=== PATIENT | male | born 1985 | race Caucasian/White ===

== ENCOUNTER 2016-07-10 03:47 | Emergency (ER) | payer BC, OTHER ==
[~2016-07-10] VITALS: Ht 157.5 cm; Wt 75.2 kg
[2016-07-10 03:49] VITALS: Ht 157.5 cm; Wt 75.2 kg
--- NOTE | 2016-07-10 03:59 | ERPDOC ---
Departure Disposition Decision Date: Jul 10, 2016 Disposition Decision Time: 04:53 Disposition: 01 DISCHARGED HOME, SELF-CARE Impression Impression Impression: Primary Impression: Alcohol intoxication Complication of substance-induced condition: uncomplicated Qualified Codes: F10.120 - Alcohol abuse with intoxication, uncomplicated Severity: Mild Condition: Improved Seen By: Physician only Referrals: CLAYTON VALDERRAMA MD (Family) Patient Instructions: Abuse of Alcohol (ED) Problems/Meds/Labs Reviewed?: Yes Medications reviewed and manag: Yes Follow up care ordered?: Yes Mental Status: Alert HPI - Psychosocial General Stated Complaint: CLEARED Time Seen by MD: 03:50 Source: patient, police Exam Limitations: intoxication HPI - Psychosocial Initial Comments Pt brought by police for medical clearance to go to senior care. Pt arrested for DUI and blew >400 on PBT. Needs medical clearance to go to senior care tonight. Pt has not complaints, admits he is "hammered." Denies any known drug use, but states he "could have had an edible or smoked some weed, but I hope not." Last etoh intake was 4+ hours ago. Allergies: Coded Allergies: No Known Drug Allergies (Unverified Allergy, Unknown, 07/10/16) Past History Past Medical History Pt denies signifigant PMH Surgical History Denies Surgeries Vaccines Hx Influenza Vaccination: No Hx Pneumococcal Vaccination: No Hx Tetanus, Diptheria, Pertuss: Yes (2-3 YEARS AGO) Social History Smoking Status: Never smoker Does patient use chewing tobac: No Second Hand Exposure: No Substance Use Type: does not use Alcohol Intake: a few times a month Record Review Pertinent history updated: Yes Review of Systems Constitutional Constitutional: DENIES: appetite decrease, appetite increase, chills, dizziness , fever, weakness ENMT Ears: DENIES: pain Hearing: DENIES: hearing loss, tinnitus Balance: DENIES: vertigo Mouth/Throat: DENIES: change in swallowing, change in voice, hoarsness, painful swallowing, sore throat Cardiovascular Cardiac: DENIES: chest pain, dyspnea on exertion Rhythm/Rate: DENIES: irregular beat, palpitations, tachycardia Vascular: DENIES: pedal edema Pulmonary Respiratory: DENIES: cough, dyspnea, pleuritic chest pain GI Upper Abdomen: DENIES: dysphagia, heartburn/indigestion, nausea, pain, vomiting Lower Abdomen: DENIES: blood in stool, constipation, diarrhea, pain General: DENIES: burning, dysuria, frequency, pain, urgency Musculoskeletal General: DENIES: cramps, joint pain, joint swelling, pain, weakness Integumentary Skin: DENIES: rash, sores Neurological General: DENIES: headache, numbness, tingling, vertigo, weakness Psychiatric Psychiatric: DENIES: anxiety, depression, nervousness Physical Exam General General Nourishment: well nourished, well developed, appears stated age, no acute distress General Body Habitus: well groomed Vitals and Pain First Documented Vital Signs Date Time Temp Pulse Resp B/P Pulse Ox O2 Delivery O2 Flow Rate FiO2 07/10/16 03:49 98.4 66 16 149/78 98 Room Air Weight: Kilograms: Height (feet): Height (inches): Triage Pain Scale: RN VS reviewed by Provider: Yes Comments Pt is alert, oriented and cooperative. Normal Exams: Head: Normocephalic w/o trauma Eyes: Pupils are PERRLA w/ EOMI, No scleral icterus, irritation, or foreign bodies noted ENMT: No facial trauma, nasal exudates, pharyngeal erythema, or exudates are noted Neck: Full range of motion, without adenopathy, JVD, bruits or thyromegaly Chest/Resp: Clear all co[place], with good airflow, and symmetry bilaterally CV: Regular rate and rhythm, without murmur or gallop, Pulses 2+ all extremities, capillary refill, <2 seconds all ext., no pedal edema noted Abdomen: Bowel sounds positive, soft, non-tender, non-distended, no hepatosplenomegaly, masses or bruits noted Lymphatic: No lymphadenopathy, or lymphedema noted Musculoskeletal: No tenderness, or deformity noted, good range of motion, all extremities Integumentary: No rashes, hives, or bruising noted, hair and nails, without abnormality Neurologic: Patient is alert, and oriented, cranial nerves, motor/sensory/ cerebellar, exams w/o gross deficits, to observation Psychiatric: Patient exhibits, appropriate attention, emotion and affect Progress Results/Orders Orders Procedure Category Date Status Time Ethanol LAB 07/10/16 Complete Drug Screen LAB 07/10/16 In Process Urine-Test At [facility] 03:50 Cbc W/Auto LAB 07/10/16 Complete Diff-Reflex Manual Cmp - Comprehensive LAB 07/10/16 Complete Metabolic Lab Results Laboratory Tests Test 07/10/16 04:23 07/10/16 04:27 White Blood Count 6.5T/MM3 Red Blood Count 5.77M/MM3 Hemoglobin 16.8GM/DL Hematocrit 47.7% Mean Corpuscular Volume 82.7UM3 Mean Corpuscular Hemoglobin 29.1UUG Mean Corpuscular Hemoglobin Concent 35.2GM/DL RDW Standard Deviation 38.4FL Platelet Count 208T/MM3 Mean Platelet Volume 11.0UM3 Immature Granulocyte % (Auto) 0.5% Neutrophils (%) (Auto) 63.5% Lymphocytes (%) (Auto) 30.5% Monocytes (%) (Auto) 3.7% Eosinophils (%) (Auto) 1.2% Basophils (%) (Auto) 0.6% Absolute Immature Granulocyte (auto 0.03T/MM3 Absolute Neutrophils (auto) 4.1T/MM3 Absolute Lymphocytes (auto) 2.0T/MM3 Absolute Monocytes (auto) 0.2T/MM3 Absolute Eosinophils (auto) 0.1T/MM3 Absolute Basophils (auto) 0.0T/MM3 Turbidity < 20 Sodium Level 154MEQ/L Potassium Level 4.3MEQ/L Chloride Level 108MEQ/L Carbon Dioxide Level 26MEQ/L Anion Gap 20MEQ/L Blood Urea Nitrogen 11.0MG/DL Creatinine 0.8MG/DL Glomerular Filtration Rate Calc 114 BUN/Creatinine Ratio 14RATIO Glucose Level 106MG/DL Calculated Osmolality 294MOSM/KG Calcium Level 10.2MG/DL Total Bilirubin 1.10MG/DL Icterus Index < 2 Aspartate Amino Transf (AST/SGOT) 84U/L Alanine Aminotransferase (ALT/SGPT) 87U/L Alkaline Phosphatase 63U/L Total Protein 8.6G/DL Albumin 5.2G/DL Globulin 3.4G/DL Albumin/Globulin Ratio 1.5RATIO Chemistry Specimen Hemolysis 48 Alcohol, Quantitative 223MG/DL Urine Opiates Screen Pending Urine Oxycodone Screen Pending Urine Methadone Screen Pending Urine Propoxyphene Screen Pending Urine Barbiturates Screen Pending Urine Tricyclic Antidepressants Pending Urine Phencyclidine Screen Pending Urine Amphetamines Screen Pending Urine Methamphetamines Screen Pending Urine Benzodiazepines Screen Pending Urine Cocaine Screen Pending Urine Cannabinoids Screen Pending Progress Progress Etoh - 223 UDS - pending cbc - normal cmp - Mild non critical abnormalities BRYAN CA MD Jul 10, 2016 03:59
--- NOTE | 2016-07-10 04:27 | NUR ---
LAB LAB AT BEDSIDE FOR BLOOD DRAW AND TO OBTAIN UDS PT CALM AND COOPERATIVE
[2016-07-10 04:40] LABS: BASOPHILS % (AUTO) 0.6 % (0-2); EOSINOPHILS # (AUTO) 0.1 T/MM3 (0-0.5); EOSINOPHILS % (AUTO) 1.2 % (0-4); HCT - HEMATOCRIT 47.7 % (41-53); HGB - HEMOGLOBIN 16.8 GM/DL (13.5-17.5); IMMATURE GRANULOCYTE # (AUTO) 0.03 T/MM3 (0.00-0.03); IMMATURE GRANULOCYTE % (AUTO) 0.5 % (0.0-0.5); LYMPHOCYTES % (AUTO) 30.5 % (23-45); MEAN CORPUSCULAR HGB 29.1 UUG (26-34); MEAN CORPUSCULAR HGB CONC(MCHC 35.2 GM/DL (31-37); MEAN CORPUSCULAR VOLUME 82.7 UM3 (80-100); MONOCYTES # (AUTO) 0.2 T/MM3 (0-0.8); MONOCYTES % (AUTO) 3.7 % (0-9.0); NEUTROPHILS #(AUTO)-ABSOLUTE 4.1 T/MM3 (1.8-7.7); NEUTROPHILS % (AUTO) 63.5 % (33-66); RED BLOOD COUNT 5.77 M/MM3 (4.50-5.90); WBC - WHITE BLOOD COUNT 6.5 T/MM3 (4.5-11.0)
[2016-07-10 04:49] LABS: ALBUMIN 5.2 G/DL (3.5-5.0); ALBUMIN/GLOBULIN RATIO 1.5 RATIO (1.1-2.2); ALKALINE PHOSPHATASE 63 U/L (38-126); ALT (SGPT) 87 U/L (21-72); ANION GAP 20 MEQ/L (5-15); AST (SGOT) 84 U/L (17-59); BUN/CREATININE RATIO 14 RATIO (6-26); CALCIUM 10.2 MG/DL (8.4-10.2); CHLORIDE 108 MEQ/L (98-107); CO2 - CARBON DIOXIDE 26 MEQ/L (22-30); CREATININE 0.8 MG/DL (0.8-1.5); ETHANOL 223 MG/DL (<10); GLOMERULAR FILTRATION RATE 114; GLUCOSE 106 MG/DL (75-110); POTASSIUM 4.3 MEQ/L (3.6-5); SODIUM 154 MEQ/L (134-144); TOTAL PROTEIN 8.6 G/DL (6.3-8.2)
[2016-07-10 04:55] LABS: AMPHETAMINE SCREEN,URINE NEGATIVE; BARBITURATE SCREEN,URINE NEGATIVE; BENZODIAZEPINES SCREEN,URINE NEGATIVE; CANNABINOID SCREEN,URINE NEGATIVE; COCAINE SCREEN,URINE NEGATIVE; METHADONE SCREEN, URINE NEGATIVE; METHAMPHETAMINE SCREEN, URINE NEGATIVE; OPIATE SCREEN,URINE NEGATIVE; PHENCYCLIDINE SCREEN,URINE NEGATIVE; TRICYCLIC ANTIDEPRESSANT,URINE NEGATIVE
--- NOTE | 2016-07-10 04:58 | NUR ---
INSTRUCTIONS DISMISSAL INSTRUCTIONS GIVEN TO PT MEDICAL RELEASE FORM FOR [facility] GIVEN TO [facility] PATHOLOGIST
[2016-07-10 04:59] VITALS: BP 149/78; PULSE 66; RESP 16; TEMP 98.4; O2SAT 98
--- NOTE | 2016-07-10 04:59 | NUR ---
DISMISS PT DISMISSED IN THE CUSTODY OF [employer]
== END 2016-07-10 04:59 ==
LOC: ED 03:47
DX: Z02.89 Encounter for other administrative examinations (principal); F10.129 Alcohol abuse with intoxication, unspecified; Y90.7 Blood alcohol level of 200-239 mg/100 ml
CPT/HCPCS: 36415; 80053; 80306; 80307; 85025